=== PATIENT | male | born 1955 | race Caucasian/White ===

== ENCOUNTER → 2016-11-03 | Outpatient (CLI) | payer BC | LOC: SUN.DIA 08:45 | DX: E10.65 Type 1 diabetes mellitus with hyperglycemia (principal); Z68.32 Body mass index [BMI] 32.0-32.9, adult; Z71.3 Dietary counseling and surveillance; I10 Essential (primary) hypertension; E78.5 Hyperlipidemia, unspecified | CPT/HCPCS: G0108 ==

== ENCOUNTER → 2016-12-03 | Outpatient (CLI) | payer BC | LOC: SUN.DIA 11:50 | DX: E10.65 Type 1 diabetes mellitus with hyperglycemia (principal); Z79.4 Long term (current) use of insulin; Z68.31 Body mass index [BMI] 31.0-31.9, adult; Z71.3 Dietary counseling and surveillance; E78.5 Hyperlipidemia, unspecified; I10 Essential (primary) hypertension | CPT/HCPCS: G0108 ==

== ENCOUNTER 2017-04-07 09:45 | Outpatient (RCR) | payer MEDICARE, BC | END 2017-05-06 13:39 | disposition home or self-care (01) | LOC: WSOT 09:45 | DX: M72.0 Palmar fascial fibromatosis [Dupuytren] (principal) | CPT/HCPCS: G8987-GO; G8988-GO ==

== ENCOUNTER → 2018-02-15 | Outpatient (CLI) | payer MEDICARE, BC | LOC: COL.VAS 02-14 08:15 | DX: I35.0 Nonrheumatic aortic (valve) stenosis (principal); I37.1 Nonrheumatic pulmonary valve insufficiency ==

== ENCOUNTER 2018-10-17 10:30 | Outpatient (RCR) | payer MEDICARE, BC | END 2018-10-23 | disposition home or self-care (01) | LOC: WSPT | DX: M54.5 Low back pain (principal); Z98.1 Arthrodesis status | CPT/HCPCS: G8978-GP; G8979-GP ==

== ENCOUNTER 2019-01-18 08:30 | Outpatient (RCR) | payer MEDICARE, BC | END 2019-01-22 | disposition home or self-care (01) | LOC: WSPT | DX: M54.5 Low back pain (principal) ==

== ENCOUNTER 2019-04-12 07:45 | Outpatient (RCR) | payer MEDICARE, BC | END 2019-04-23 | LOC: WSPT | DX: M54.5 Low back pain (principal); G89.29 Other chronic pain ==

== ENCOUNTER → 2022-03-20 | Outpatient (CLI) | payer MEDICARE, BC | LOC: COL.RAD 10:03 | DX: G25.2 Other specified forms of tremor (principal) | CPT/HCPCS: Q9967 ==